=== PATIENT | female | born 1955 | race Caucasian/White ===

== ENCOUNTER 2021-11-24 14:14 | Emergency (ER) | payer BC, MEDICARE ==
[2021-11-24] MEDS ORDERED: Bacitracin Oint 1 GM U/D Packet TOP ONE (14:34)
[2021-11-24] MEDS ORDERED: Lidocaine 1% 5 ML VIAL INJECT ONE (14:34)
== END 2021-11-24 15:03 | disposition home or self-care (01) ==
LOC: JP.ED 14:14
DX: S01.332A Puncture wound without foreign body of left ear, initial encounter (principal); Z79.899 Other long term (current) drug therapy; W45.8XXA Other foreign body or object entering through skin, initial encounter
CPT/HCPCS: 99282

== ENCOUNTER 2021-11-29 19:21 | Emergency (ER) | payer MEDICARE ==
[2021-11-29] MEDS ORDERED: Morphine 4 MG/ML Syringe IVPUSH PRN (19:26)
[2021-11-29] MEDS ORDERED: Sodium Chloride 0.9% 10 ML Syringe FLUSH PRN (19:26)
[2021-11-29] MEDS ORDERED: Aspirin 81 MG Tab.Chew PO ONE (19:26)
[2021-11-29] MEDS: Nitroglycerin 0.4 MG Tab.SL SL PRN ×2 (19:37→20:06)
[2021-11-29 20:00] LABS: ESTIMATED GFR 80 mL/min (>60); TROPONIN I HIGH SENSITIVITY 7.9 pg/mL (<=60.3)
[2021-11-29] MEDS ORDERED: Alum Hydrox/Mag Hydrox/Simeth 15 ML, Lidocaine 2% 15 ML PO ONE ×2 (21:12)
[2021-11-29] MEDS ORDERED: Ketorolac 30 MG/ML SDV IVPUSH ONE (23:01)
[2021-11-30] MEDS ORDERED: Iopamidol 755 Mg/ML 100 ML Bottle IV STA (00:01)
[2021-11-30] MEDS ORDERED: Sodium Chloride 0.9% 50 ML IV STA (00:02)
== END 2021-11-30 02:25 | disposition home or self-care (01) ==
LOC: JP.ED 19:21
DX: R07.89 Other chest pain (principal); I10 Essential (primary) hypertension
CPT/HCPCS: 36415; 71045; 71275; 80053; 83605; 84484; 85025; 93005; 96374; 96375; 99285; A9270; J1885; J2270; J3490; Q9967; 93010; 99283